=== PATIENT | female | born 1990 | race Caucasian/White ===

== ENCOUNTER 2018-01-24 11:38 | Emergency (ER) | payer OTHER, SELFPAY ==
[2018-01-24 12:35] LABS: Absolute Lymphocytes (CBC) 4.6 K/uL (0.7-4.9); Absolute Monocytes 1.8 K/uL (0.1-1.3); Absolute Neutrophil 8.8 K/uL (1.8-8.0); Basophils % 0.7 % (0-1.3); Hematocrit 38.4 % (36.0-45.0); Lymphocytes % 29.9 % (15.3-44.8); MCH 29.9 pg (27.0-35.0); MCV 91.7 fL (80-100); Monocytes % 11.6 % (3.3-12.3); RBC Red Blood Cell Count 4.19 M/uL (3.86-4.86)
[2018-01-24 13:06] LABS: BUN Blood Urea Nitrogen 9 mg/dL (7-18); Bicarbonate 24 mmol/L (21-32); Glucose Level 95 mg/dL (74-106); HCG, Quantitative 40050 mIU/mL (1-3); Potassium 3.8 mmol/L (3.5-5.1); Sodium Level 140 mmol/L (136-145)
--- NOTE | 2018-01-24 13:33 | EDPHYS ---
Physician Documentation [facility] Name: Larisa Yeboah Age: 27 yrs Sex: Female : 1990 Arrival Date: 01/24/2018 Time: 11:41 Bed 8 Private MD: ED Physician Samir Manuel HPI: 01/24 12:16 This 27 yrs old Female presents to ER via EMS with complaints of Vaginal snw Bleeding. 12:16 The patient presents with vaginal discharge, that is a moderate amount of brown snw discharge, patient has not had similar discharge in the past. Onset: The symptoms/episode began/occurred suddenly, 1 day(s) ago, and improved. Modifying factors: The symptoms are alleviated by nothing. Associated signs and symptoms: Pertinent positives: cramping. Severity of symptoms: At their worst the symptoms were mild. The patient has experienced a previous episode. The patient has not recently seen a physician. in area to attend [facility]. 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 - Ebola Screening: : No symptoms or risks identified at this time. - Social history:: Smoking status: Patient/guardian denies using tobacco. ROS: 12:15 Constitutional: Negative for fever, chills, and weight loss, Eyes: Negative for injury, snw pain, redness, and discharge, ENT: Negative for injury, pain, and discharge, Neck: Negative for injury, pain, and swelling, Cardiovascular: Negative for chest pain, palpitations, and edema, Respiratory: Negative for shortness of breath, cough, wheezing, and pleuritic chest pain, Abdomen/GI: Negative for abdominal pain, nausea, vomiting, diarrhea, and constipation, Back: Negative for injury and pain, MS/Extremity: Negative for injury and deformity, Skin: Negative for injury, rash, and discoloration, Neuro: Negative for headache, weakness, numbness, tingling, and seizure. 12:15 : Positive for vaginal bleeding, low cramping. Exam: 12:15 Constitutional: This is a well developed, well nourished patient who is awake, alert, snw and in no acute distress. Head/Face: Normocephalic, atraumatic. Eyes: Pupils equal round and reactive to light, extra-ocular motions intact. Lids and lashes normal. Conjunctiva and sclera are non-icteric and not injected. Cornea within normal limits. Periorbital areas with no swelling, redness, or edema. ENT: Nares patent. No nasal discharge, no septal abnormalities noted. Tympanic membranes are normal and external auditory canals are clear. Oropharynx with no redness, swelling, or masses, exudates, or evidence of obstruction, uvula midline. Mucous membranes moist. Neck: Trachea midline, no thyromegaly or masses palpated, and no cervical lymphadenopathy. Supple, full range of motion without nuchal rigidity, or vertebral point tenderness. No Meningismus. Chest/axilla: Normal chest wall appearance and motion. Nontender with no deformity. No lesions are appreciated. Cardiovascular: Regular rate and rhythm with a normal S1 and S2. No gallops, murmurs, or rubs. Normal PMI, no JVD. No pulse deficits. Respiratory: Lungs have equal breath sounds bilaterally, clear to auscultation and percussion. No rales, rhonchi or wheezes noted. No increased work of breathing, no retractions or nasal flaring. Abdomen/GI: Soft, non-tender, with normal bowel sounds. No distension or tympany. No guarding or rebound. No evidence of tenderness throughout. Back: No spinal tenderness. No costovertebral tenderness. Full range of motion. Skin: Warm, dry with normal turgor. Normal color with no rashes, no lesions, and no evidence of cellulitis. MS/ Extremity: Pulses equal, no cyanosis. Neurovascular intact. Full, normal range of motion. Neuro: Awake and alert, GCS 15, oriented to person, place, time, and situation. Cranial nerves II-XII grossly intact. Motor strength 5/5 in all extremities. Sensory grossly intact. Cerebellar exam normal. Normal gait. Vital Signs: 11:35 BP 114 / 63; Pulse 84; Resp 18; Temp 98.1(O); Pulse Ox 98% on R/A; Weight 79.38 kg; sv Height 5 ft. 4 in. (162.56 cm); Pain 2/10; 12:35 BP 118 / 86; Pulse 74; Resp 17; Pulse Ox 99% on R/A; dh3 11:35 Body Mass Index 30.04 (79.38 kg, 162.56 cm) sv MDM: 11:54 Patient medically screened. snw 13:40 Data reviewed: vital signs, nurses notes. Data interpreted: Pulse oximetry: on room air snw is 99 %. Interpretation: normal. Counseling: I had a detailed discussion with the patient and/or guardian regarding: the historical points, exam findings, and any diagnostic results supporting the discharge/admit diagnosis, the presence of at least one elevated blood pressure reading (>120/80) during this emergency department visit, lab results, radiology results, the need for outpatient follow up, to return to the emergency department if symptoms worsen or persist or if there are any questions or concerns that arise at home. Special discussion: I have referred the patient to see his PCP for further evaluation of high blood pressure. Based on the history and exam findings, there is no indication for further emergent testing or inpatient evaluation. I discussed with the patient/guardian the need to see the OB Gyne specialist for further evaluation of the symptoms. 01/24 11:55 Order name: Quantitative Hcg; Complete Time: 13:08 w 01/24 11:55 Order name: Abo/rh Typing; Complete Time: 13:08 snw 01/24 11:55 Order name: Basic Metabolic Panel; Complete Time: 13:08 snw 01/24 11:55 Order name: CBC with Diff; Complete Time: 12:52 snw 01/24 12:50 Order name: Urine Dipstick--Ancillary (enter results); Complete Time: 13:41 em1 01/24 12:50 Order name: Urine --Ancillary (enter results); Complete Time: 13:41 em1 01/24 11:55 Order name: Urine Test (obtain specimen); Complete Time: 12:47 snw 01/24 11:55 Order name: Labs collected and sent; Complete Time: 12:39 snw 01/24 11:55 Order name: NPO; Complete Time: 11:57 snw 01/24 11:55 Order name: Urine Dipstick-Ancillary (obtain specimen); Complete Time: 12:47 snw 01/24 12:12 Order name: US Transvaginal Ob snw Administered Medications: 13:33 CANCELLED (note needed): NS 0.9% 1000 ml IV at 1000 ml once sv Disposition: 18:33 Co-signature as Attending Physician, Samir Manuel MD. Disposition: 01/24/18 13:32 Discharged to Home. Impression: Threatened . - Condition is Stable. - Discharge Instructions: Threatened Miscarriage, Pelvic Rest, Blighted Ovum. - Prescriptions for Vitamin 27- 0.8 mg Oral Tablet - take 1 tablet by ORAL route once daily; 60 tablet. - Medication Reconciliation Form, Thank You Letter, Antibiotic Education, Prescription Opioid Use form. - Follow up: Private Physician; When: 48 Hours; Reason: Recheck today's complaints, Continuance of care, Re-evaluation by your physician. Follow up: Emergency Department; When: As needed; Reason: Worsening of condition. Signatures: Dispatcher [employer] Stephanie Nation RN RN Shaggy Rowe RN RN Tonia Weems, FURNITURE SPRAYER-C FURNITURE SPRAYER-Csnw Samir Manuel MD MD Corrections: (The following items were deleted from the chart) 13:33 11:55 IV Saline Lock ordered. snw sv 13:33 11:55 NS 0.9% 1000 ml IV at 1000 ml once ordered. snw sv 13:33 13:33 NS 0.9% 1000 ml IV at 1000 ml once ordered. sv sv 13:59 13:32 01/24/2018 13:32 Discharged to Home. Impression: Threatened . Condition sg is Stable. Forms are Medication Reconciliation Form, Thank You Letter, Antibiotic Education, Prescription Opioid Use. Follow up: Private Physician; When: 48 Hours; Reason: Recheck today's complaints, Continuance of care, Re-evaluation by your physician. Follow up: Emergency Department; When: As needed; Reason: Worsening of condition. snw
--- NOTE | 2018-01-24 13:33 | ER ---
Nurse's Notes [facility] Name: Larisa Yeboah Age: 27 yrs Sex: Female : 1990 Arrival Date: 01/24/2018 Time: 11:41 Bed 8 Private MD: Diagnosis: Threatened Presentation: 01/24 11:31 Presenting complaint: EMS states: dark red vaginal bleeding started about 25 mins ago sv while doing yoga. Pt reports being about 7 weeks . BP 119/75 HR 91 98% RA. Transition of care: patient was received from another setting of care (rehabilitation facility). Onset of symptoms was January 24, 2018 at 11:10. Risk Assessment: Do you want to hurt yourself or someone else? Patient reports no desire to harm self or others. Initial Sepsis Screen: Does the patient meet any 2 criteria? No. Patient's initial sepsis screen is negative. Does the patient have a suspected source of infection? No. Patient's initial sepsis screen is negative. Care prior to arrival: None. 11:31 Method Of Arrival: EMS: [facility] sv 11:31 Acuity: PLACIDO 3 sv Triage Assessment: 11:35 General: Appears in no apparent distress. uncomfortable, Behavior is calm, cooperative, sv appropriate for age. Pain: Complains of pain in suprapubic area Pain currently is 2 out of 10 on a pain scale. Quality of pain is described as crampy, Pain began suddenly, 30 min ago. Is intermittent. EENT: No signs and/or symptoms were reported regarding the EENT system. Neuro: Level of Consciousness is awake, alert, obeys commands, Oriented to person, place, time, situation, Moves all extremities. Full function Gait is steady, Speech is normal. Respiratory: Respiratory effort is even, unlabored, Respiratory pattern is regular, symmetrical. : Reports vaginal bleeding that is light flow, dark red. Derm: Skin is normal. Musculoskeletal: No signs and/or symptoms reported regarding the musculoskeletal system. 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 - Ebola Screening: : No symptoms or risks identified at this time. - Social history:: Smoking status: Patient/guardian denies using tobacco. Screenin:47 Abuse screen: Denies threats or abuse. Denies injuries from another. Nutritional sv screening: No deficits noted. Tuberculosis screening: No symptoms or risk factors identified. Fall Risk None identified. Assessment: 11:46 Reassessment: See triage assessment. sv 12:48 Reassessment: Patient appears in no apparent distress at this time. No changes from sv previously documented assessment. Patient and/or family updated on plan of care and expected duration. Pain level reassessed. Patient is alert, oriented x 3, equal unlabored respirations, skin warm/dry/pink. 13:50 Reassessment: Went to discharge pt, pt is on our cordless phone yelling. Informed pt sv her discharge paperwork is ready. Vital Signs: 11:35 BP 114 / 63; Pulse 84; Resp 18; Temp 98.1(O); Pulse Ox 98% on R/A; Weight 79.38 kg; sv Height 5 ft. 4 in. (162.56 cm); Pain 2/10; 12:35 BP 118 / 86; Pulse 74; Resp 17; Pulse Ox 99% on R/A; dh3 11:35 Body Mass Index 30.04 (79.38 kg, 162.56 cm) sv ED Course: 11:41 Patient arrived in ED. sv 11:41 Tonia Weems [facility]C [facility] sv 11:41 Samir Manuel MD is Attending Physician. sv 11:41 Stephanie Tapia RN is Primary Nurse. sv 11:43 Triage completed. sv 11:45 Arm band placed on right wrist. sv 11:47 Patient has correct armband on for positive identification. Placed in gown. Bed in low sv position. Pulse ox on. NIBP on. Door closed. Warm blanket given. Head of bed elevated. 12:20 Initial lab(s) drawn, by me, sent to lab. Missed attempt(s): 20 gauge in right dh3 antecubital area. Bleeding controlled, band aid applied, catheter tip intact. 12:26 Radiology exam delayed due to test not completed at this time. sg3 12:48 Urine collected: clean catch specimen, clear. sv 13:26 Ultrasound completed. Patient tolerated well. sg3 13:33 US Transvaginal Ob In Process Unspecified. EDMS 13:58 No provider procedures requiring assistance completed. Patient did not have IV access sv during this emergency room visit. Administered Medications: 13:33 CANCELLED (note needed): NS 0.9% 1000 ml IV at 1000 ml once sv Outcome: 13:32 Discharge ordered by . snw 13:58 Discharged to home ambulatory, Pt left without signing paperwork. sv 13:58 Condition: stable 13:59 Patient left the ED. sg Signatures: Dispatcher [employer] Stephanie Nation RN Shaggy Mathews RN RN sg Tonia Weems, VALUATION MANAGER-C VALUATION MANAGER-[place]aimaw Vanessa Loyd [facility] Letty Loom[place] sg3
[2018-01-24 13:36] LABS: Urine Blood 2+ (NEG); Urine Glucose NEGATIVE (NEG); Urine Protein NEGATIVE (NEG); Urine Specific Gravity 1.015 (1.005-1.030)
--- NOTE | 2018-01-24 14:11 | RAD REPORT ---
EXAM DESCRIPTION: US - Transvaginal OB - 01/24/2018 1:33 pm CLINICAL HISTORY: ABD CRAMPING, COMPARISON: No comparisons FINDINGS: An irregularly-shaped gestational sac is seen within the estimated mean sac diameter of 25 mm corresponding with 7 weeks 3 days gestational age. The sac contains internal debris. A normal emb amaury is not identified. The sac position is somewhat atypical appearing at the level the midbody of th e uterus. Crescentic subchorionic bleed is present around the sac margin inferiorly measuring 19 x 15 mm. Both ovaries are normal in size, shape and echotexture. 4.4 cm left ovarian hemorrhagic cyst versus e ndometrioma seen. IMPRESSION: Irregularly-shaped gestational sac at the level the midbody of the uterus seen without i dentifiable normal embryo.Given the size of the sac, lack of normal embryo visualization likely indic ates a missed /failed early . Advise close interval followup serial HCG levels and f ollowup pelvic sonography in 7-10 days.
== END 2018-01-24 13:59 | disposition home or self-care (01) ==
LOC: ER 11:38
DX: O20.0 Threatened abortion (principal); Z3A.01 Less than 8 weeks gestation of pregnancy; Z88.1 Allergy status to other antibiotic agents
CPT/HCPCS: 36415; 76817; 80048; 81003; 81025; 84702; 85025; 86900; 86901; 99284

== ENCOUNTER 2018-02-01 13:14 | Emergency (ER) | payer OTHER, SELFPAY ==
--- OUTSIDE RECORDS SUMMARY | 2018-02-01 13:17 | XMS REPORT ---
:1990 Author Organization [facility] Address Unavailable , Allergies, Adverse Reactions, Alerts Allergy Name Reaction Description Start Date Severity Status Provider AMOXICILLIN Rash all over her body and Critical Active Rodari López [employer] Fever Conditions or Problems Problem Name Problem Onset Status Entry Provider Comment Standard Annotate Code Date Date Description Less than 8 V28.9 Active Arline Encounter for weeks gestation 01/07 01/07 Walton unspecified of screening of mother Maternal care Active Arline for low 01/07 01/07 Walton transverse scar from previous delivery Ovarian cyst in 654.43 Active Arline Other 01/07 01/07 Walton abnormalities in shape or position of gravid uterus and of neighboring structures, antepartum condition or complication Supervision V23.9 Active Arline Supervision of high risk 01/07 01/07 Walton unspecified , high-risk first trimester Candidal 112.1 Active Rodari Candidiasis of vaginitis 03/18 03/18 López vulva and [employer] vagina 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 03/18 03/18 López without mention Antibodies [employer] of complication HSV-1 N egative Antibodies HSV-2 BMI 31.0-31.9 Active Rodnia Body Mass Index 03/12 03/12 López 31.0-31.9, [employer] adult Breast Exam, V76.19 Active Ag Other screening Screening 03/12 03/12 Rene breast [employer] examination Encounter for V05.9 Active Ag Need for immunization 03/12 03/12 Rene prophylactic [employer] vaccination and inoculation against unspecified single disease Gynecological V72.3 Active Ag Special examination, 03/12 03/12 [place] investigations routine [employer] and examinations - Gynecological examination Obesity Active Rodari Obesity, 03/12 03/12 [place] unspecified [employer] Screening for V73.98 Active Rodari Screening chlamydial 03/12 03/12 [place] examination for disease [employer] unspecified chlamydial disease Screening for V77.1 Active Rodari Screening for DM 03/12 03/12 [place] diabetes [employer] mellitus Screening for V77.99 Active Rodari Screening for endocrine 03/12 03/12 [place] other and disease [employer] unspecified endocrine, nutritional, metabolic, and immunity disorders Screening for V77.91 Active Rodari Screening for lipid disorder 03/12 03/12 [place] lipoid [employer] disorders Screening for V77.99 Active Rodari Screening for vitamin D 03/12 03/12 [place] other and deficiency [employer] unspecified endocrine, nutritional, metabolic, and immunity disorders Screening, STD V74.5 Active Rodari Screening 03/12 03/12 [place] examination for [employer]ER venereal disease Vaccination for V04.89 Active Rodari Need for HPV 03/12 03/12 [place] prophylactic [employer] vaccination and inoculation against other viral diseases Medication List Medication Instructions Start Stop Generic NDC Status Provider Patient Date Date Name Instruction FLAGYL 500 1 tab by METRONIDAZOLE [id number] Active Arline Active MG ORAL mouth twice Arabella TABLET a day for 7 days TERAZOL 7 insert TERCONAZOLE 15830965622 Active Arline Active 0.4 % vaginally Walton VAGINAL QHS x 7 CREAM days ENFAMIL one By [id number] Active Arline Active EXPECTA Mouth daily MV-MIN-FE Walton 28-0.8 & FUM-FA-DHA 200 MG ORAL MACROBID 1 by mouth NITROFURANTOIN 28236393771 Active Arline Active 100 MG twice a day MONOHYD MACRO Walton ORAL x 7 days CAPSULE DIFLUCAN 150 1 by mouth DIFLUCAN 150 924453 FLUCONAZOLE Inactive MG ORAL once MG ORAL TABLET TABLET MICONAZOLE 7 Apply one MICONAZOLE 7 741935 MICONAZOLE Inactive 100 MG suppository 100 MG NITRATE VAGINAL intravagina VAGINAL SUPPOSITORY lly SUPPOSITORY nilghtly for 7 nights. DIFLUCAN 1 by FLUCONAZOLE [id number] No Arline Active 150 MG mouth Longer Walton ORAL once Active TABLET MICONAZOLE Apply MICONAZOLE 14022020614 No Rodari Active 7 100 MG one NITRATE Longer López VAGINAL suppos Active [employer] SUPPOSITOR itory Y intrav aginal ly nilght ly for 7 nights . Advance Directives Directive Description Start Date DISCUSSED - NO DECISION MADE Immunizations Vaccine Administration Date Value Standard Description hepatitis B vaccine #1 given given hepatitis B vaccine, unspecified formulation Human Papilloma Virus Vaccine given human papilloma virus (Gardasil) (HPV 1) vaccine, quadrivalent Administration Date Tetanus toxoid, reduced given tetanus toxoid, reduced diphtheria toxoid and acellular diphtheria toxoid, and Pertussis vaccine, absorbed acellular pertussis vaccine, (TdaP) given adsorbed Vital Signs Date Name Value Unit Range Description blood pressure, diastolic 70 mm[Hg] BP jones blood pressure, systolic 105 mm[Hg] BP sys height E&M 64 [in_us] Bdy height pulse rate E&M 79 /min Heart rate respiratory rate E&M 14 /min Resp rate temperature E&M 98.9 [degF] Body temperature weight E&M 173 [lb_av] Weight Measured blood pressure, diastolic 72 mm[Hg] BP jones blood pressure, systolic 113 mm[Hg] BP sys height E&M 64 [in_us] Bdy height pulse rate E&M 79 /min Heart rate respiratory rate E&M 16 /min Resp rate temperature E&M 98.4 [degF] Body temperature weight E&M 182.50 [lb_av] Weight Measured Diagnostic Results Date Name Value Unit Range Description Lab Report: CBC With Differential/Platelet, Comp. Metabolic Panel (14), ... - Serology hepatitis C antibody, serum <0.1 0.0-0.9 Lab Report: CBC With Differential/Platelet, Comp. Metabolic Panel (14), ... - Hematology lymphocyte count, blood, automated 4.5 X10E3/UL 10*3/mm3 0.7- 3.1 Office Visit: Initial Visit rm 2 - Urinalysis pH, urine, semiquantitative 5.0 bilirubin, urine negative Lab Report: CBC With Differential/Platelet, Comp. Metabolic Panel (14), ... - Chemistry urea nitrogen, blood 12 mg/dL 6-20 creatinine, serum 0.57 mg/dL 0.57-1.00 Lab Report: CBC With Differential/Platelet, Comp. Metabolic Panel (14), ... - Hematology mean corpuscular volume, RBC 91 fL 79-97 Lab Report: CBC With Differential/Platelet, Comp. Metabolic Panel (14), ... - Chemistry chloride, serum 102 mmol/L 96-106 Lab Report: HSV 1 and 2-Specific Ab, IgG - Serology HERPES SIMPLEX VIRUS TYPE 2 AB.IGG (PT; SER; QN; <0.91 index 0.00-0.90 ) Lab Report: CBC With Differential/Platelet, Comp. Metabolic Panel (14), ... - Chemistry triglyceride, serum, fasting 80 mg/dL 0-149 Lab Report: CBC With Differential/Platelet, Comp. Metabolic Panel (14), ... - Hematology erythrocyte (RBC) count 4.53 X10E6/UL 10*6/mm3 3.77-5.28 Lab Report: CBC With Differential/Platelet, Comp. Metabolic Panel (14), ... - Chemistry Estimated Glomerular Filtration Rate (calc) 130 mL/min/1.73m2 > 59 Lab Report: CBC With Differential/Platelet, Comp. Metabolic Panel (14), ... - Hematology platelet count 373 X10E3/UL 10*3/mm3 150-379 Office Visit: Initial Visit rm 2 - Urinalysis appearance, urine clear Lab Report: CBC With Differential/Platelet, Comp. Metabolic Panel (14), ... - Hematology red blood cell distribution width 13.6 % 12.3-15.4 Lab Report: CBC With Differential/Platelet, Comp. Metabolic Panel (14), ... - Chemistry protein, total, serum 6.9 g/dL 6.0-8.5 HDL cholesterol, serum 46 mg/dL >39 Lab Report: CBC With Differential/Platelet, Comp. Metabolic Panel (14), ... - Hematology eosinophils as percent of blood leukocytes 2 % Office Visit: Initial Visit rm 2 - Urinalysis glucose, urine, semiquantitative negative Lab Report: CBC With Differential/Platelet, Comp. Metabolic Panel (14), ... - Chemistry albumin/globulin ratio, serum 2.0 1.2-2.2 Absolute Neutrophils 5.9 X10E3/UL 10*3/uL 1.4-7.0 Lab Report: CBC With Differential/Platelet, Comp. Metabolic Panel (14), ... - Hematology basophil count, absolute 0.0 x10E3/uL 0.0-0.2 Lab Report: CBC With Differential/Platelet, Comp. Metabolic Panel (14), ... - Chemistry hepatitis B surface antigen Negative Negative alanine aminotransferase (SGPT), serum 16 U/L 0-32 LDL cholesterol, serum 82 mg/dL 0-99 Lab Report: CBC With Differential/Platelet, Comp. Metabolic Panel (14), ... - Hematology monocytes as percent of blood leukocytes 13 % Office Visit: Initial Visit rm 2 - Urinalysis nitrite, urine, semiquantitative negative Lab Report: Pap IG, rfx HPV ASCU - Lab Human Papillomavirus test result HPVNotTested Lab Report: Urine Culture, Routine, Result - Urinalysis urine culture Escherichia coli Lab Report: CBC With Differential/Platelet, Comp. Metabolic Panel (14), ... - Chemistry cholesterol, serum 144 mg/dL 100-199 Lab Report: CBC With Differential/Platelet, Comp. Metabolic Panel (14), ... - Hematology mean corpuscular hemoglobin concentration, RBC 33.9 G/DL % 31.5- 35.7 hemoglobin, blood 13.9 g/dL 11.1-15.9 Office Visit: Initial Visit 2 - Urinalysis leukocyte esterase, urine, by dipstick 2+ Lab Report: CBC With Differential/Platelet, Comp. Metabolic Panel (14), ... - Hematology leukocyte count, blood 12.3 X10E3/UL 10*3/mm3 3.4-10.8 Office Visit: Initial Visit 2 - Urinalysis protein, urine, semiquantitative (dipstick) negative Lab Report: CBC With Differential/Platelet, Comp. Metabolic Panel (14), ... - Hematology hematocrit, blood 41.0 % 34.0-46.6 Lab Report: HSV 1 and 2-Specific Ab, IgG - Serology HERPES SIMPLEX VIRUS TYPE 1 AB.IGG (PT; SER; QN; 8.96 index 0.00-0.90 ) Lab Report: CBC With Differential/Platelet, Comp. Metabolic Panel (14), ... - Chemistry globulin, serum 2.3 1.5-4.5 vitamin D 25-hydroxy, serum 41.6 ng/mL 30.0-100.0 thyroid stimulating hormone, serum 0.817 u[iU]/mL 0.450-4.500 albumin, serum 4.6 g/dL 3.5-5.5 very low density lipoproteins 16 mg/dL 5-40 Lab Report: CBC With Differential/Platelet, Comp. Metabolic Panel (14), ... - Serology rubella antibody, serum, IgG 1.34 Immune >0.99 Office Visit: Initial Visit 2 - Urinalysis urobilinogen, urine, semiquantitative (dipstick) negative Lab Report: CBC With Differential/Platelet, Comp. Metabolic Panel (14), ... - Hematology basophils as percent of blood leukocytes 0 % Lab Report: CBC With Differential/Platelet, Comp. Metabolic Panel (14), ... - Chemistry calcium, serum 9.8 mg/dL 8.7-10.2 Lab Report: CBC With Differential/Platelet, Comp. Metabolic Panel (14), ... - Hematology monocyte count, blood, automated 1.6 X10E3/UL 10*3/uL 0.1-0.9 Lab Report: CBC With Differential/Platelet, Comp. Metabolic Panel (14), ... - Chemistry immature granulocytes, percentage of total cells, blood 0 % urea nitrogen/creatinine ratio, serum 21 9-23 Lab Report: CBC With Differential/Platelet, Comp. Metabolic Panel (14), ... - Genetics/fertility eGFR if 150 mL/min/1.73m2 >59 Lab Report: CBC With Differential/Platelet, Comp. Metabolic Panel (14), ... - Hematology lymphocytes as percent of blood leukocytes 37 % Lab Report: CBC With Differential/Platelet, Comp. Metabolic Panel (14), ... - Chemistry carbon dioxide, venous blood 22 mmol/L 18-29 Lab Report: CBC With Differential/Platelet, Comp. Metabolic Panel (14), ... - Serology rapid plasma reagin antibody, serum Non Reactive Non Reactive Lab Report: Vaginitis/Vaginosis, DNA Probe, Chlamydia/GC Amplification - Lab chlamydia DNA probe Negative Negative Lab Report: Vaginitis/Vaginosis, DNA Probe, Chlamydia/GC Amplification - Microbiology Neisseria gonorrhoeae DNA probe Negative Negative Lab Report: CBC With Differential/Platelet, Comp. Metabolic Panel (14), ... - Chemistry sodium, serum 140 mmol/L 471-322 2840/08/17 hemoglobin A1C, blood, as % of total hemoglobin 5.4 % 4.8-5.6 Internal Other: test - Chemistry beta HCG, urine, semiquantitative positive Lab Report: CBC With Differential/Platelet, Comp. Metabolic Panel (14), ... - Chemistry alkaline phosphatase, serum 64 U/L 39-117 Office Visit: Initial Visit rm 2 - Urinalysis ketones, urine, by test strip negative Lab Report: CBC With Differential/Platelet, Comp. Metabolic Panel (14), ... - Hematology Eosinophil Absolute Count 0.2 X10E3/UL 10*3/uL 0.0-0.4 Office Visit: Initial Visit rm 2 - Urinalysis specific gravity, urine 1.020 Office Visit: Initial Visit 2 - Automobile Technician estimated delivery date by last menstrual period 08/31/2018 Lab Report: CBC With Differential/Platelet, Comp. Metabolic Panel (14), ... - Hematology mean corpuscular hemoglobin, RBC 30.7 pg 26.6-33.0 Lab Report: Vaginitis/Vaginosis, DNA Probe, Chlamydia/GC Amplification - Urinalysis trichomonas vaginalis, urine Negative Negative Lab Report: CBC With Differential/Platelet, Comp. Metabolic Panel (14), ... - Chemistry bilirubin, serum, total 0.3 mg/dL 0.0-1.2 Lab Report: CBC With Differential/Platelet, Comp. Metabolic Panel (14), ... - Hematology neutrophils as percent of blood leukocytes 48 % Office Visit: Initial Visit rm 2 - Urinalysis blood in urine (hemoglobin) by dipstick negative Lab Report: CBC With Differential/Platelet, Comp. Metabolic Panel (14), ... - Chemistry blood glucose, random 92 mg/dL 65-99 potassium, serum 4.5 mmol/L 3.5-5.2 aspartate aminotransferase (SGOT), serum 20 U/L 0-40 Office Visit: Initial Visit rm 2 - Urinalysis urine color yellow Encounters Date Encounter Provider Code Facility Est Patient Exp Arline Bell CPT-33835 [facility] 14:52:45 CD[place] Problem - [address] Danisha [employer]ER Procedures Code Procedure Name Date Entry Date Standard Description CPT-67446 Handling of specimen for transfer 14:52:46 CDT CPT-41684 Venipuncture 14:52:46 CDT CPT-85492 Urinalysis - Dip only - In House 14:52:46 CDT CPT-86908 TDAP 10:04:59 CDT CPT-24154 Hepatitis B - Adult 10:04:59 CDT CPT-81421 Admin of Vaccine - Injection - Each Add'l 10:04:59 CDT CPT-66504 Gardasil (HPV) 9 - valent 10:04:59 CDT CPT-76015 Admin of Vaccine - Injection - 1 10:04:59 CDT CPT-88650 Handling of specimen for transfer 09:36:23 CDT CPT-90647 Venipuncture 09:36:21 CDT CPT-31362 Urinalysis - Dip only - In House 10:04:30 CDT CPT-05205 Urinalysis - - In House 10:04:30 CDT CPT-62331 Handling of specimen for transfer 10:04:30 CDT CPT-98443 Venipuncture 10:04:29 CDT CPT-86874 New Patient Well Exam ( - 41 Yrs) - [address] 10:04:24 CDT
--- OUTSIDE RECORDS SUMMARY | 2018-02-01 13:17 | XMS REPORT | Clinical Summary ---
:1990 Author Organization [facility] Address [address] [place] [id number] Care Team Providers Name Role Phone Unavailable Primary Care Provider Unavailable Allergies Active Allergy Reactions Severity Noted Date Comments Amoxicillin Hives 02/01/2017 Current Medications Prescription Sig. Disp. Refills Start Date End Date Status sertraline (ZOLOFT) 50 Take 1 tablet by 18 tablet 0 02/01/2017 Active mg tabletIndications: mouth daily. Moderate single current episode of major depressive disorder traZODone (DESYREL) 50 Take 1 tablet by 18 tablet 0 02/01/2017 Active mg tabletIndications: mouth nightly at Moderate single current bedtime as needed episode of major for Sleep. depressive disorder Active Problems Problem Noted Date Moderate single current episode of major depressive disorder 02/01/2017 Anxiety Suicidal ideation Encounters Date Type Specialty Care Team Description 12/09/2017 - Emergency Emergency Medicine 12/10/2017 02/01/2017 Emergency Emergency Medicine Jaylen Esteban MD Moderate single current episode of major depressive disorder (Primary Dx); Suicidal ideation; Anxiety after 01/31/2017 Social History Tobacco Use Types Packs/Day Years Used Date Never Smoker Sex Assigned at Date Recorded Not on file Last Filed Vital Signs Vital Sign Reading Time Taken Blood Pressure 131/68 12/09/2017 11:36 PM CDT Pulse 98 12/09/2017 11:36 PM CDT Temperature 36.3 C (97.4 F) 12/09/2017 11:36 PM CDT Respiratory Rate 18 12/09/2017 11:36 PM CDT Oxygen Saturation 99% 12/09/2017 11:36 PM CDT Inhaled Oxygen Concentration - - Weight 80 kg (176 lb 5.9 oz) 12/09/2017 2:55 PM CDT Height - - Body Mass Index - - Plan of Treatment Health Maintenance Due Date Last Done Comments IMM MenB (1 of 2 - Bexsero 2-Dose Series) 2002 CERVICAL CANCER SCRN (3 YRS) 2013 Results BMP POC (12/09/2017 3:16 PM)Only the most recent of2 resultswithin the time period is included. Component Value Ref Range CO2 POC 30 21 - 32 mmol/L Chloride POC 103 98 - 107 mmol/L Potassium POC 4.9 3.50 - 5.10 mmol/L Sodium POC 141 136 - 145 mmol/L Glucose POC 81 74 - 106 mg/dL Urea Nitrogen POC 13 7 - 18 mg/dL Creatinine POC 0.6 0.6 - 1.3 mg/dL Calcium Ionized POC 1.15 1.15 - 1.29 mmol/L Hemoglobin POC 15.0 12.0 - 16.0 g/dL Hematocrit POC 44.0 37.0 - 47.0 % GFR, Estimated >60 mL/min/1.73 m2 GFR, Estim, Afr-Am >60 mL/min/1.73 m2 Specimen Performing Laboratory [facility] HIV: unless the patient is HIV positive (12/09/2017 3:10 PM) Component Value Ref Range HIV-1/HIV-2 Negative NEG Specimen Performing Laboratory [facility] LIVER PROFILE (12/09/2017 3:10 PM) Component Value Ref Range T Protein 6.5 6.0 - 8.3 g/dL Albumin 4.0 3.7 - 5.3 g/dL T Bilirubin 0.3 0.2 - 1.2 mg/dL Alk Phos 93 34 - 104 U/L AST 14 13 - 39 U/L ALT 16 7 - 52 U/L D Bilirubin 0.1 0.0 - 0.2 mg/dL Specimen Performing Laboratory Blood [facility] Lipase (12/09/2017 3:10 PM) Component Value Ref Range Lipase 25 11 - 82 U/L Specimen Performing Laboratory Blood M[facility] Urinalysis with reflex to micro (12/09/2017 3:08 PM) Component Value Ref Range Color Yellow Clarity Clear Spec [place] 1.010 1.001 - 1.035 pH 7.0 5 - 8 Protein Negative NEG Glucose Negative NEG Ketone Negative NEG Bilirubin Negative NEG Nitrate Negative NEG Urobilinogen <1.0 0.2 - 1.0 EU/dL Leukocyte Negative NEG Blood Negative NEG Specimen Performing Laboratory Urine [facility] TEST (12/09/2017 3:08 PM) Component Value Ref Range Negative Specimen Performing Laboratory Urine [facility] CBC/DIFF (02/01/2017 4:50 PM) Component Value Ref Range WBC 16.5 (H) 4.5 - 11.0 K/uL RBC 4.39 4.20 - 5.40 M/uL Hemoglobin 13.3 12.0 - 16.0 g/dL Hematocrit 39.5 37.0 - 47.0 % MCV 90 82 - 92 fL MCH 30.3 27.0 - 32.0 pg MCHC 33.7 32.0 - 36.0 g/dL RDW 47.7 (H) 36.4 - 46.3 fL Platelet 401 (H) 150 - 400 K/uL Mean Platelet Volume 11.0 9.4 - 12.4 fL Percent NRBC 0.0 Absolute NRBC 0.00 Neutrophil 64.0 34.0 - 70.0 % Lymphocyte 25.0 20.0 - 50.0 % Monocyte 10.0 5.0 - 12.0 % Eosinophil None seen 0.7 - 5.0 % Basophil None seen 0.1 - 1.2 % Neutrophil, Abs 10.58 (H) 1.56 - 6.13 K/uL Lymphocyte, Abs 4.13 (H) 1.18 - 3.74 K/uL Monocyte, Abs 1.65 (H) 0.24 - 0.36 K/uL Eosinophil, Abs None seen 0.04 - 0.36 K/uL Basophil, Abs None seen 0.01 - 0.08 K/uL Atypical Lymph 1 % Crenated Cells 2+ Specimen Performing Laboratory Blood [facility] Urine Drug Screen (02/01/2017 4:12 PM) Component Value Ref Range Amphetamine Positive (A) NEG Comment: Calibrated Standard: D-Methamphetamine Positive if urine level >ld=5691 ng/mL Barbiturate Negative NEG Comment: Calibrated Standard: Secobarbital Positive if urine level is >xu=668 ng/mL Benzodiazepine Negative NEG Comment: Calibrated Standard: Lormethazepam Positive if urine level is >kv=787 ng/mL Cannabinoid Positive (A) NEG Comment: Calibrated Standard: 11 nor-delta(9)-THC carboxylic a Positive if urine level >or=50 Cocaine Negative NEG Comment: Calibrated Standard: Benzoylecgonine Positive if urine level >gb=817 Opiate, Ur Negative NEG Comment: Calibrated Standard: Morphine Positive if urine level >sp=556 PCP Negative NEG Comment: Calibrated Standard: Phencyclidine Positive if urine level >or=25 Urine Toxicology Screen results are to be used only for Medical purposes. Specimen Performing Laboratory Urine [facility] after 01/31/2017
--- OUTSIDE RECORDS SUMMARY | 2018-02-01 13:17 | XMS REPORT ---
:1990 Author Organization [facility] Address [facility] access hospital[address] [place] [address] Care Team Providers Name Role Phone UNKNOWN, REFFERING Primary Care Provider Unavailable RASSVANE, AMIR Unavailable Unavailable HOSSAANITA MCCORMICK Unavailable Unavailable KEYONA, SEGUN Unavailable Unavailable Problems This patient has no known problems. Allergies, Adverse Reactions, Alerts This patient has no known allergies or adverse reactions. Medications This patient has no known medications. Encounters Start End Encounter Admission Attending Care Care Encounter Date/Time Date/Time Type Type Clinicians Facility Department ID 2017-12-09 2017-12-09 Emergency [facility] [id number] 11:22:00 11:22:00 2017-02-19 2017-02-19 Outpatient [facility] [id number] 00:00:00 00:00:00 2017-02-01 2017-02-01 Emergency [facility] [id number] 15:10:01 15:10:01 2016-10-30 2016-10-[address] [facility] [id number] 13:28:00 13:28:00 2016-04-30 2016-04-30 Emergency E [facility] [id number] 10:43:00 10:43:00 Results Test Description Test Time Test Comments Text Results Atomic Results Result Comments Chlamydia/GC Amplification 2017-03-11 09:29:00 Test Item Value Reference Range Comments Chlamydia trachomatis, DEJAH (test hvuh=[id number]) Negative Negative Neisseria gonorrhoeae, DEJAH (test ruhg=[id number]) Negative Negative Smear, Wet [id number] 16:41:00 Test Item Value Reference Range Comments WBC (test code=JWBC) FEW EPITHELIAL CELLS (test code=JEPITH) MODERATE BACTERIA (test code=JBACTERIA) MODERATE CLUE CELLS (test code=JCLUE) NONE YEAST (test code=JYEAST) NONE TRICHOMONAS (test code=JTRICH) NONE BHCG, Urine, [id number] 16:39:00 Test Item Value Reference Range Comments Preg Qual [Ur] (test code=HUHCG) Negative Negative Urinalysis [id number] 16:37:00 Test Item Value Reference Range Comments Color (test code=COLOR) Yellow Yellow,Straw,Pl yellow Clarity (test code=CLAR) Clear Clear Specific [place] (test code=SPGR) 1.011 1.001-1.035 pH (test code=PH) 8.0 5.0-9.0 Ketone (test code=KET) Negative mg/dL Negative Glucose (test code=GLUCUR) Negative mg/dL Negative Protein (test code=PROT) Negative mg/dL Negative Bilirubin (test code=BILI) Negative mg/dL Negative Occult Blood (test code=UDOB) Negative Negative Urobilinogen (test code=UROB) 0.2 mg/dL 0.2-1.0 Nitrite (test code=NIT) Negative Negative Leuk Esterase (test code=LEUK) Negative Negative Micros Exam (test code=MEXAM) Not indicated BHCG, Urine, [id number] 10:57:00 Test Item Value Reference Range Comments Preg Qual [Ur] (test code=HUHCG) Negative Negative Urinalysis [id number] 10:57:00 Test Item Value Reference Range Comments Color (test code=COLOR) Yellow Yellow,Straw,Pl yellow Clarity (test code=CLAR) Clear Clear Specific [place] (test code=SPGR) 1.010 1.001-1.035 pH (test code=PH) 6.0 5.0-9.0 Ketone (test code=KET) Negative mg/dL Negative Glucose (test code=GLUCUR) Negative mg/dL Negative Protein (test code=PROT) Negative mg/dL Negative Bilirubin (test code=BILI) Negative mg/dL Negative Occult Blood (test code=UDOB) Mod to Large Negative Urobilinogen (test code=UROB) 0.2 mg/dL 0.2-1.0 Nitrite (test code=NIT) Negative Negative Leuk Esterase (test code=LEUK) Small Negative Micros Exam (test code=MEXAM) Indicated Epithelial Cells (test code=EPI) 6-9 /LPF 0-30 WBC, Urine (test code=UWBC) None seen /HPF 0-5 RBC, Urine (test code=URBC) 6-9 /HPF 0-5 Bacteria (test code=BACT) None /HPF Culture, [id number] 09:09:00Specimen: Urine, CC-MidstreamCollected: 2016 13:55 Status: Final Last Updated: 10/20/201609:09 (1) ER Bed 6 Culture Result (Final) (Final) 10/19/2016 No growth 24 hours 2016 No growth 48 hoursUrinalysis [id number] 14:06:00 Test Item Value Reference Range Comments Color (test code=COLOR) Yellow Yellow,Straw,Pl yellow Clarity (test code=CLAR) Cloudy Clear Specific [place] (test code=SPGR) 1.016 1.001-1.035 pH (test code=PH) 8.0 5.0-9.0 Ketone (test code=KET) Negative mg/dL Negative Glucose (test code=GLUCUR) Negative mg/dL Negative Protein (test code=PROT) Negative mg/dL Negative Bilirubin (test code=BILI) Negative mg/dL Negative Occult Blood (test code=UDOB) Moderate Negative Urobilinogen (test code=UROB) 0.2 mg/dL 0.2-1.0 Nitrite (test code=NIT) Negative Negative Leuk Esterase (test code=LEUK) Small Negative Ictotest (test code=ICTOTEST) Negative Negative,Confirmed Negative Clinitest (test code=CLINITEST) Not Indicated Micros Exam (test code=MEXAM) Indicated Epithelial Cells (test code=EPI) 0-2 /LPF 0-30 WBC, Urine (test code=UWBC) 2-5 /HPF 0-5 RBC, Urine (test code=URBC) None Seen /HPF 0-5 Amorph Deposit (test code=AMORD) Mod /HPF Mucous, Urine (test code=UMUC) Trace /HPF Bacteria (test code=BACT) None /HPF Yeast (test code=YEAST) None Seen /HPF Trichomonas (test code=TRICH) None Seen /HPF Casts (test code=CASTS) None /HPF Crystals (test code=DOMI) None /HPF BHCG, Urine, [id number] 13:40:00 Test Item Value Reference Range Comments Preg Qual [Ur] (test code=HUHCG) Negative Negative
[2018-02-01 16:37] LABS: Urine Amorphous Sediment 3+ /HPF (NONE SEEN); Urine Bacteria <20 /HPF (<20); Urine Culture Reflex Order NOT NEEDED; Urine RBC <5 /HPF (NONE SEEN)
[2018-02-01 16:38] LABS: Urine Blood NEGATIVE (NEG); Urine Glucose NEGATIVE (NEG); Urine Protein NEGATIVE (NEG); Urine Specific Gravity 1.015 (1.005-1.030)
--- NOTE | 2018-02-01 16:54 | RAD REPORT ---
EXAM DESCRIPTION: US - Transvaginal OB - 02/01/2018 4:35 pm CLINICAL HISTORY: with abdominal pain COMPARISON: January 24, 2018 FINDINGS: The uterus measures 9 x 6 x 7 centimeters. . A gestational sac is present within the endo metrium of the lower uterine segment measuring 2.5 x 2.3 x 3.3 centimeters. A pole is not seen. A subchorionic hemorrhage measures 18 x 8 millimeters. A 5.2 centimeter left ovarian cyst is without significant change. An additional 2.1 centimeter left o varian cyst is present. Blood flow is seen within the parenchyma of the left ovary. The right ovary i s normal in size and echotexture. No significant free fluid is seen. IMPRESSION: These findings probably indicate a blighted ovum. 5.2 centimeter left ovarian cyst likely is benign. Follow up ultrasound in a couple of months is malvin mmended for re-evaluation
--- NOTE | 2018-02-01 19:03 | EDPHYS ---
Physician Documentation [facility] Name: Larisa Yeboah Age: 27 yrs Sex: Female : 1990 Arrival Date: 02/01/2018 Time: 13:15 Bed 19 Private MD: ED Physician Alberto Rosario HPI: 02/01 16:02 This 27 yrs old Female presents to ER via Ambulatory with complaints of jr8 Urinary Problem, Needs HCG checked. 16:02 The patient presents to the emergency department with abdominal pain, of the suprapubic jr8 area, urinary symptoms, dysuria. The estimated gestational age is 9 weeks. course: care: none, Leakage of Fluid: none appreciated, Ultrasound: the patient had an ultrasound, on January 24, 2018, which showed No pole at that time . Previous pregnancies: in previous pregnancies patient has had. Associated signs and symptoms: The patient has no apparent associated signs or symptoms. The patient has not experienced similar symptoms in the past. The patient has been recently seen by a physician:. Patient came to ED for another HCG check and US to determine if she had miscarried or not. Having urinary complaints as well now . 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 - Ebola Screening: : No symptoms or risks identified at this time. - Social history:: Smoking status: Patient uses tobacco products, denies chronic smoking, but will smoke occasionally. ROS: 16:02 Eyes: Negative for injury, pain, redness, and discharge, ENT: Negative for injury, jr8 pain, and discharge, Neck: Negative for injury, pain, and swelling, Cardiovascular: Negative for chest pain, palpitations, and edema, Respiratory: Negative for shortness of breath, cough, wheezing, and pleuritic chest pain, Back: Negative for injury and pain, MS/Extremity: Negative for injury and deformity, Skin: Negative for injury, rash, and discoloration, Neuro: Negative for headache, weakness, numbness, tingling, and seizure. 16:02 Abdomen/GI: Positive for abdominal pain, Negative for nausea, vomiting, and diarrhea, abdominal distension, anorexia, dysphagia, hematemesis, black/tarry stool, rectal pain, rectal bleeding, bowel incontinence, flatulence. 16:02 : Positive for urinary symptoms. Exam: 16:02 Eyes: Pupils equal round and reactive to light, extra-ocular motions intact. Lids and jr8 lashes normal. Conjunctiva and sclera are non-icteric and not injected. Cornea within normal limits. Periorbital areas with no swelling, redness, or edema. ENT: Nares patent. No nasal discharge, no septal abnormalities noted. Tympanic membranes are normal and external auditory canals are clear. Oropharynx with no redness, swelling, or masses, exudates, or evidence of obstruction, uvula midline. Mucous membranes moist. Neck: Trachea midline, no thyromegaly or masses palpated, and no cervical lymphadenopathy. Supple, full range of motion without nuchal rigidity, or vertebral point tenderness. No Meningismus. Cardiovascular: Regular rate and rhythm with a normal S1 and S2. No gallops, murmurs, or rubs. Normal PMI, no JVD. No pulse deficits. Respiratory: Lungs have equal breath sounds bilaterally, clear to auscultation and percussion. No rales, rhonchi or wheezes noted. No increased work of breathing, no retractions or nasal flaring. Abdomen/GI: Soft with mild suprapubic abdominal tenderness present. Normal bowel sounds. No distension or tympany. No guarding or rebound. No evidence of tenderness throughout. Back: No spinal tenderness. No costovertebral tenderness. Full range of motion. Skin: Warm, dry with normal turgor. Normal color with no rashes, no lesions, and no evidence of cellulitis. MS/ Extremity: Pulses equal, no cyanosis. Neurovascular intact. Full, normal range of motion. Neuro: Awake and alert, GCS 15, oriented to person, place, time, and situation. Cranial nerves II-XII grossly intact. Motor strength 5/5 in all extremities. Sensory grossly intact. Cerebellar exam normal. Normal gait. Vital Signs: 13:33 BP 115 / 68; Pulse 83; Resp 18 S; Temp 98.7(TE); Pulse Ox 99% on R/A; Weight 79.38 kg aa5 (R); Height 5 ft. 4 in. (162.56 cm) (R); Pain 5/10; 16:00 BP 114 / 68; Pulse 80; Resp 16; Pulse Ox 99% ; jl7 18:27 BP 111 / 70; Pulse 85; Resp 16; Pulse Ox 98% on R/A; jl7 19:15 BP 112 / 64; Pulse 83; Resp 16; Temp 98(O); Pulse Ox 100% on R/A; Pain 0/10; bs1 13:33 Body Mass Index 30.04 (79.38 kg, 162.56 cm) aa5 MDM: 15:48 Patient medically screened. jr8 18:20 ED course: discharged delayed because HCG has still not been run by lab. jr8 19:01 Data reviewed: vital signs, nurses notes, lab test result(s), radiologic studies, jr8 ultrasound, and as a result, I will discharge patient. Data interpreted: Pulse oximetry: on room air is 98 %. Interpretation: normal. Counseling: I had a detailed discussion with the patient and/or guardian regarding: the historical points, exam findings, and any diagnostic results supporting the discharge/admit diagnosis, lab results, radiology results, the need for outpatient follow up, an OB/Gyne specialist, to return to the emergency department if symptoms worsen or persist or if there are any questions or concerns that arise at home. 02/01 16:01 Order name: Urine Microscopic Only; Complete Time: 16:41 8 02/01 16:01 Order name: HCG-Quantitative; Complete Time: 18:54 02/01 16:01 Order name: Urine Test (obtain specimen); Complete Time: 16:11 8 02/01 16:02 Order name: US Transvaginal Ob; Complete Time: 17:09 8 02/01 16:11 Order name: Urine Dipstick--Ancillary (enter results); Complete Time: 16:41 eb 02/01 16:11 Order name: Urine --Ancillary (enter results); Complete Time: 16:41 eb 02/01 16:01 Order name: Urine Dipstick-Ancillary (obtain specimen); Complete Time: 16:11 jr8 Administered Medications: No medications were administered Disposition: 02/02 11:43 Co-signature as Attending Physician, Alberto Rosario MD I agree with the assessment and kdr plan of care. Disposition: 02/01/18 19:02 Discharged to Home. Impression: Threatened . - Condition is Stable. - Discharge Instructions: Threatened Miscarriage, Blighted Ovum. - Medication Reconciliation Form, Thank You Letter, Antibiotic Education, Prescription Opioid Use form. - Follow up: Jhonatan Holder MD; When: 2 - 3 days; Reason: Recheck today's complaints, Continuance of care, Re-evaluation by your physician. - Problem is new. - Symptoms are unchanged. Signatures: Dispatcher [employer] EDMS Alberto Rosario MD MD kdr Frances Shaw RN RN aa5 Jose Rosas PA PA jr8 Megha Alvarado RN RN bs1 Corrections: (The following items were deleted from the chart) 02/01 19:32 19:02 02/01/2018 19:02 Discharged to Home. Impression: Threatened . Condition bs1 is Stable. Forms are Medication Reconciliation Form, Thank You Letter, Antibiotic Education, Prescription Opioid Use. Follow up: Jhonatan Holder; When: 2 - 3 days; Reason: Recheck today's complaints, Continuance of care, Re-evaluation by your physician. Problem is new. Symptoms are unchanged. jr8
--- NOTE | 2018-02-01 19:03 | ER ---
Nurse's Notes [facility] Name: Larisa Yeboah Age: 27 yrs Sex: Female : 1990 Arrival Date: 02/01/2018 Time: 13:15 Bed 19 Private MD: Diagnosis: Threatened Presentation: 02/01 13:31 Presenting complaint: Patient states: burning with urination and lower abd pain that aa5 began today. Pt states "I am about 8 to 9 weeks and when I came here they wanted me to come back and do a recheck on my levels as well". Transition of care: patient was not received from another setting of care. Onset of symptoms was January 2018. Risk Assessment: Do you want to hurt yourself or someone else? Patient reports no desire to harm self or others. Initial Sepsis Screen: Does the patient meet any 2 criteria? No. Patient's initial sepsis screen is negative. Does the patient have a suspected source of infection? No. Patient's initial sepsis screen is negative. Care prior to arrival: None. 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 - Ebola Screening: : No symptoms or risks identified at this time. - Social history:: Smoking status: Patient uses tobacco products, denies chronic smoking, but will smoke occasionally. Screenin:00 Abuse screen: Denies threats or abuse. Denies injuries from another. Nutritional jl7 screening: No deficits noted. Tuberculosis screening: No symptoms or risk factors identified. Fall Risk None identified. Assessment: 16:00 General: Appears in no apparent distress. uncomfortable, Behavior is calm, cooperative, jl7 appropriate for age. Pain: Complains of pain in suprapubic area Pain does not radiate. Pain currently is 5 out of 10 on a pain scale. Quality of pain is described as aching, crampy, Pain began 1 day ago. Is continuous. Neuro: Level of Consciousness is awake, alert, obeys commands, Oriented to person, place, time, situation. Cardiovascular: Patient's skin is warm and dry. Respiratory: Airway is patent Respiratory effort is even, unlabored, Respiratory pattern is regular, symmetrical. GI: Abdomen is flat, non-distended. : Reports burning with urination. Derm: Skin is pink, warm \\T\\ dry. 17:00 Reassessment: Patient and/or family updated on plan of care and expected duration. Pain jl7 level reassessed. Patient is alert, oriented x 3, equal unlabored respirations, skin warm/dry/pink. 18:00 Reassessment: Patient and/or family updated on plan of care and expected duration. Pain jl7 level reassessed. Patient is alert, oriented x 3, equal unlabored respirations, skin warm/dry/pink. 19:10 Reassessment: Patient appears in no apparent distress at this time. Patient and/or bs1 family updated on plan of care and expected duration. Pain level reassessed. Patient is alert, oriented x 3, equal unlabored respirations, skin warm/dry/pink. Report received from CELIA Perez. I agree with previous assessment. no further needs at this time. ARMAND Rosas at bedside talking with patient regarding POC. Vital Signs: 13:33 BP 115 / 68; Pulse 83; Resp 18 S; Temp 98.7(TE); Pulse Ox 99% on R/A; Weight 79.38 kg aa5 (R); Height 5 ft. 4 in. (162.56 cm) (R); Pain 5/10; 16:00 BP 114 / 68; Pulse 80; Resp 16; Pulse Ox 99% ; jl7 18:27 BP 111 / 70; Pulse 85; Resp 16; Pulse Ox 98% on R/A; jl7 19:15 BP 112 / 64; Pulse 83; Resp 16; Temp 98(O); Pulse Ox 100% on R/A; Pain 0/10; bs1 13:33 Body Mass Index 30.04 (79.38 kg, 162.56 cm) aa5 ED Course: 13:15 Patient arrived in ED. sb2 13:31 Arm band placed on. aa5 13:33 Triage completed. aa5 15:48 Roszak, Jose, PA is PHCP. jr8 15:48 Alberto Rosario MD is Attending Physician. jr8 15:50 Ana Reyes, CELIA is Primary Nurse. jl7 16:00 Patient has correct armband on for positive identification. Bed in low position. Call jl7 light in reach. Side rails up X 1. Pulse ox on. NIBP on. Warm blanket given. 16:00 Urine collected: clean catch specimen, cloudy. jl7 16:36 US Transvaginal Ob In Process Unspecified. EDMS 18:00 Initial lab(s) drawn, by me, sent to lab. jl7 19:01 Jhonatan Holder MD is Referral Physician. jr8 19:10 Primary Nurse role handed off by Ana Reyes RN rg2 19:27 Megha Alvarado, CELIA is Primary Nurse. bs1 19:30 No provider procedures requiring assistance completed. Patient did not have IV access bs1 during this emergency room visit. Administered Medications: No medications were administered Outcome: 19:02 Discharge ordered by MD. jr8 19:30 Discharged to [facility] bs1 19:30 Condition: stable 19:30 Discharge instructions given to patient, Instructed on discharge instructions, follow up and referral plans. Demonstrated understanding of instructions, follow-up care. 19:32 Patient left the ED. bs1 Signatures: Dispatcher [employer] EDMD Jony Metcalf rg2 Frances Shaw, RN RN aa5 Jose Rosas PA PA jr8 Ana Reyes, RN RN jl7 Megha Alvarado, RN RN bs1 Marilin Farr 2 Corrections: (The following items were deleted from the chart) 19:32 19:10 Reassessment: Patient appears in no apparent distress at this time. Patient bs1 and/or family updated on plan of care and expected duration. Pain level reassessed. Patient is alert, oriented x 3, equal unlabored respirations, skin warm/dry/pink. Report received from CELIA Perez bs1
== END 2018-02-01 19:32 | disposition home or self-care (01) ==
LOC: ER 13:14
DX: O20.0 Threatened abortion (principal); Z3A.09 9 weeks gestation of pregnancy; Z88.1 Allergy status to other antibiotic agents
CPT/HCPCS: 36415; 76817; 81003; 81015; 81025; 84702; 99284